=== PATIENT | female | born 1975 | race Caucasian/White ===

== ENCOUNTER → 2020-01-28 | Outpatient (CLI) | payer OTHER ==
[~2020-01-28] VITALS: Ht 167.7 cm; Wt 54.5 kg
[~2020-01-28] MED LIST: LIDOCAINE 1% INJ 20 ML 20 ML VIAL INJ ONE; LIDOCAINE 1% INJ 20 ML 20 ML VIAL ONE
--- NOTE | 2020-01-28 16:45 | Diagnostic Imaging Report ---
INDICATION: Left breast mass. Patient presents for ultrasound guided biopsy. DETAILS OF THE PROCEDURE: The patient was brought to the ultrasound suite and placed on the table in the supine position. Ultrasound imaging of the left breast was performed to evaluate for an appropriate entry site. The left breast was then prepped and draped in the usual sterile fashion. A small amount of 1% lidocaine was utilized for local anesthesia. A total of three passes was made into the solid mass at the 7 o'clock location of the left breast 2-3 cm from the nipple utilizing a 14-gauge Achieve needle. Core biopsies were obtained. Next, a marker clip was deployed. Hemostasis was obtained using manual compression. The patient tolerated the procedure well and was sent for post procedure mammogram in satisfactory condition. IMPRESSION: Successful ultrasound guided core biopsy of the solid mass in the left breast at the 7 o'clock location. Pathology results are currently pending. Dictated by: Dictated on workstation # [id number]
--- NOTE | 2020-01-29 12:20 | Diagnostic Imaging Report ---
INDICATION: Left breast mass, status post left breast biopsy. Unilateral left 2-D CC and MLO mammography was performed status post ultrasound-guided biopsy. The images demonstrate a marker clip within the mass in the medial retroareolar left breast, status post biopsy. IMPRESSION: Marker clip appropriately located within the mass in the left breast, as described. Dictated by: Dictated on workstation # [id number]
== END ==
LOC: RAD 13:36
PROVIDERS: ATTEND Nurse Practitioner Family
DX: N63.24 Unspecified lump in the left breast, lower inner quadrant (principal)
CPT/HCPCS: 19083; 77065; A4648; G0279